=== PATIENT | male | born 1940 | race Caucasian/White ===

== ENCOUNTER 2017-08-08 22:39 | Inpatient (IN) | payer OTHER, MEDICARE ==
[2017-08-09] MEDS ORDERED: cefTRIAXone 1 GM Vial IVPUSH ONE (00:33)
--- NOTE | 2017-08-09 01:31 | EDM.PDOC ---
ED HPI GENERAL MEDICAL PROBLEM - General Chief Complaint: Fever Stated Complaint: fall, fever, cough Time Seen by Provider: 08/08/17 23:11 Source of Information: Reports: Patient, EMS, EMS Notes Reviewed, Family History Limitations: Reports: No Limitations - History of Present Illness INITIAL COMMENTS - FREE TEXT/NARRATIVE: Patient brought in via ambulance after passing out at the side of his bed. He did fall on his head and complained of head and neck pain. Has chronic back pain. Was reportedly non responsive on first responders report. He is responsive here but difficult to understand. Medical history is recorded below. No complaints of chest pain, nausea, vomiting, blood in urine or stool. Was seen at the clinic today for fever and shortness of breath/cough. Started on augmentin. Chronic kidney disease, tardive dyskinesia, htn, frequent UTI's, schizoaffective disorder. Is febrile with some diaphoresis. Onset: Gradual Duration: Getting Worse Location: Reports: Chest Associated Symptoms: Reports: Shortness of Breath - Related Data Allergies Allergy/AdvReac Type Severity Reaction Status Date / Time No Known Allergies Allergy Verified 08/08/17 23:47 Home Meds: Home Meds Allopurinol [Zyloprim] 300 mg PO DAILY 04/10/17 [History] Aspirin [Ecotrin] 325 mg PO DAILY 04/10/17 [History] [place] Carbonate 300 mg PO BEDTIME 04/10/17 [History] Metoprolol Succinate [Toprol XL] 25 mg PO DAILY 04/10/17 [History] Tamsulosin HCl [Flomax] 0.4 mg PO DAILY 04/10/17 [History] Trifluoperazine 2 mg PO DAILY@0800 04/10/17 [History] atorvaSTATin [Lipitor] 10 mg PO BEDTIME 04/10/17 [History] buPROPion [Wellbutrin XL] 150 mg PO DAILY 04/10/17 [History] metFORMIN HCl [Metformin HCl] 1,000 mg PO BID 04/10/17 [History] Trifluoperazine 4 mg PO BEDTIME 04/11/17 [History] Levothyroxine 175 mcg PO DAILY 08/09/17 [History] Past Medical History HEENT History: Reports: Hard of Hearing, Other (See Below) Other HEENT History: severe dental caries Cardiovascular History: Reports: CAD, High Cholesterol, Hypertension Genitourinary History: Reports: Urinary Incontinence Musculoskeletal History: Reports: Other (See Below) Other Musculoskeletal History: DJD of lumbar spine Neurological History: Reports: Neuropathy, Diabetic, Other (See Below) Other Neuro History: intention tremor, mild aphasia, schizoaffective disorder, bipolar type Psychiatric History: Reports: Anxiety, Depression, Other (See Below) Other Psychiatric History: schizoaffective disorder, bipolar type Endocrine/Metabolic History: Reports: Diabetes, Type II, Hypothyroidism Dermatologic History: Reports: Other (See Below) Other Dermatologic History: 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 - Infectious Disease History Infectious Disease History: Reports: Herpes - Past Surgical History Cardiovascular Surgical History: Reports: None GI Surgical History: Reports: Appendectomy Male Surgical History: Reports: Other (See Below) Other Male Surgeries/Procedures: prostate hypertrophy Social & Family History - Family History Family Medical History: Noncontributory - Tobacco Use Smoking Status *Q: Former Smoker Years of Tobacco use: 40 Packs/Tins Daily: 2 Used Tobacco, but Quit: No Month Tobacco Last Used: unknown - Caffeine Use Caffeine Use: Reports: None - Recreational Drug Use Recreational Drug Use: No ED ROS GENERAL - Review of Systems Review Of Systems: See Below Constitutional: Reports: Fever HEENT: Reports: No Symptoms Respiratory: Reports: Shortness of Breath Cardiovascular: Reports: No Symptoms Endocrine: Reports: No Symptoms GI/Abdominal: Reports: No Symptoms : Reports: No Symptoms Musculoskeletal: Reports: Neck Pain, Back Pain Skin: Reports: Wound (skin tear to right lower arm from fall) Neurological: Reports: Weakness Psychiatric: Reports: Anxiety, Depression Hematologic/Lymphatic: Reports: No Symptoms Immunologic: Reports: No Symptoms ED EXAM, SEPSIS - Physical Exam Exam: See Below Exam Limited By: Altered Mental Status General Appearance: Alert, WD/WN, Mild Distress Eye Exam: Bilateral Eye: EOMI, PERRL Ears: Normal TMs Throat/Mouth: Normal Inspection, Normal Lips, Normal Teeth, Normal Gums, Normal Oropharynx, Normal Voice, No Airway Compromise Head: Atraumatic, Normocephalic Neck: Normal Inspection, Supple, Non-Tender, Full Range of Motion Respiratory/Chest: No Respiratory Distress, Decreased Breath Sounds, Rhonchi Cardiovascular: Normal Peripheral Pulses, Regular Rate, Rhythm, No Edema, No Gallop, No JVD, No Murmur, No Rub GI/Abdominal Exam: Normal Bowel Sounds, Soft, Non-Tender, No Organomegaly, No Distention, No Abnormal Bruit, No Mass, Pelvis Stable Extremities: Normal Capillary Refill, Pedal Edema Neurological: Alert, Confused, Disoriented, Slow to Respond Psychiatric: Flat Affect Skin: Wound/Incision (right distal forearm skin tear. covered with dressing) Course - Vital Signs Last Recorded V/S: Last Vital Signs Temp 38.3 C H 08/08/17 22:40 Pulse 116 H 08/08/17 22:40 Resp 32 H 08/08/17 22:40 BP 138/93 H 08/08/17 22:40 Pulse Ox 93 L 08/08/17 22:40 - Orders/Labs/Meds Orders: Active Orders 24 hr Category Date Time Status Patient Status [ADT] Routine ADT 08/09/17 00:50 Ordered EKG Documentation Completion [RC] ROUTINE Care 08/08/17 23:12 Ordered Humphreys Catheter Insertion [Insert Urinary Catheter] [OM. Care 08/08/17 23:30 Ordered PC] Q24H Urinary Catheter Assessment [RC] ASDIRECTED Care 08/08/17 23:21 Active Cervical Spine wo Cont [CT] Stat Exams 08/08/17 23:12 Taken Chest wo Cont [CT] Stat Exams 08/08/17 23:12 Taken Head wo Cont [CT] Stat Exams 08/08/17 23:12 Taken CULTURE BLOOD [BC] Stat Lab 08/08/17 23:34 Received CULTURE BLOOD [BC] Stat Lab 08/08/17 23:40 Received CULTURE URINE [RM] Stat Lab 08/09/17 00:59 Uncollected PSA-EIA [REF] Stat Lab 08/08/17 23:34 Received Lactated Ringers @ 125 MLS/HR(1,000ml) Med 08/09/17 01:00 Ordered Lactated Ringers [Ringers, Lactated] 1,000 ml IV ASDIRECTED Blood Culture x2 Reflex Set [OM.PC] Stat Oth 08/08/17 23:34 Ordered Medication Orders Lactated Ringer's (Ringers, Lactated) 1,000 mls @ 125 mls/hr IV ASDIRECTED SHARRON Labs: Laboratory Tests 08/08/17 08/08/17 08/08/17 Range/Units 23:34 23:34 23:34 WBC 12.7 H (4.0-10.0) x10^3/uL RBC 5.71 (4.5-6.0) x10^6/uL Hgb 16.8 D (14.0-18.0) g/dL Hct 51.0 (40.0-52.0) % MCV 89.3 (78.0-93.0) fL MCH 29.4 (26.0-32.0) pg MCHC 32.9 (32.0-36.0) g/dL RDW Coeff of Yovany 15.7 H (10.0-15.0) % Plt Count 105 L (130-400) x10^3/uL Neut % (Auto) 81.7 H (50.0-80.0) % Lymph % (Auto) 8.9 L (25.0-50.0) % [place] % (Auto) 9.2 (2.0-11.0) % Eos % (Auto) 0.0 (0.0-4.0) % Baso % (Auto) 0.2 (0.2-1.2) % POC ABG pH (7.35-7.45) POC ABG pCO2 (35-45) mmHG POC ABG pO2 (80-105) mmHG POC ABG HCO3 (22-26) mmol/L POC ABG Total CO2 (23-27) mmol/L POC ABG O2 Sat (95-98) % POC ABG Base Excess (-2-3) mmol/L POC FiO2 Sodium 142 (136-145) mmol/L Potassium 4.7 (3.5-5.1) mmol/L Chloride 105 (98-107) mmol/L Carbon Dioxide 22 (21-32) mmol/L BUN 32 H (7-18) mg/dL Creatinine 1.9 H (0.70-1.30) mg/dL Est Cr Clr Drug Dosing 41.24 mL/min Estimated GFR (MDRD) 35 Glucose 202 H (74-106) mg/dL Lactic Acid 3.4 H* (0.4-2.0) mmol/L Calcium 8.3 L (8.5-10.1) mg/dL Corrected Calcium 8.46 L (8.5-10.1) mg/dL Total Bilirubin 1.0 (0.2-1.0) mg/dL AST 42 H (15-37) U/L ALT 40 (16-63) U/L Alkaline Phosphatase 130 H (46-116) U/L Troponin I 0.073 H* (<=0.056) ng/mL C-Reactive Protein 4.0 H (<=0.9) mg/dL NT-Pro-B Natriuret Pep (<=450) pg/mL Total Protein 7.2 (6.4-8.2) g/dL Albumin 3.8 (3.4-5.0) g/dL Globulin 3.4 g/dL Albumin/Globulin Ratio 1.12 TSH, Ultra Sensitive 0.838 (0.358-3.74) uIU/mL Urine Color (YELLOW) Urine Appearance (CLEAR) Urine pH (5.0-8.0) Ur Specific [place] Urine Protein (NEGATIVE) mg/dL Urine Glucose (UA) (NEGATIVE) mg/dL Urine Ketones (NEGATIVE) mg/dL Urine Occult Blood (NEGATIVE) Urine Nitrite (NEGATIVE) Urine Bilirubin (NEGATIVE) Urine Urobilinogen (0.2) EU/dL Ur Leukocyte Esterase (NEGATIVE) Urine RBC (NOT SEEN) /HPF Urine WBC (NOT SEEN) /HPF Ur Squamous Epith Cells (NEGATIVE) /HPF Amorphous Sediment Urine Bacteria (NEGATIVE) /HPF Hyaline Casts (NEGATIVE) /HPF Granular Casts (NEGATIVE) /HPF Urine Mucus (NEGATIVE) /LPF 08/08/17 08/08/17 08/09/17 Range/Units 23:34 23:51 00:40 WBC (4.0-10.0) x10^3/uL RBC (4.5-6.0) x10^6/uL Hgb (14.0-18.0) g/dL Hct (40.0-52.0) % MCV (78.0-93.0) fL MCH (26.0-32.0) pg MCHC (32.0-36.0) g/dL RDW Coeff of Yovany (10.0-15.0) % Plt Count (130-400) x10^3/uL Neut % (Auto) (50.0-80.0) % Lymph % (Auto) (25.0-50.0) % [place] % (Auto) (2.0-11.0) % Eos % (Auto) (0.0-4.0) % Baso % (Auto) (0.2-1.2) % POC ABG pH 7.409 (7.35-7.45) POC ABG pCO2 31 L (35-45) mmHG POC ABG pO2 78 L (80-105) mmHG POC ABG HCO3 19 L (22-26) mmol/L POC ABG Total CO2 20 L (23-27) mmol/L POC ABG O2 Sat 96 (95-98) % POC ABG Base Excess -5 L (-2-3) mmol/L POC FiO2 0.28 Sodium (136-145) mmol/L Potassium (3.5-5.1) mmol/L Chloride (98-107) mmol/L Carbon Dioxide (21-32) mmol/L BUN (7-18) mg/dL Creatinine (0.70-1.30) mg/dL Est Cr Clr Drug Dosing mL/min Estimated GFR (MDRD) Glucose (74-106) mg/dL Lactic Acid (0.4-2.0) mmol/L Calcium (8.5-10.1) mg/dL Corrected Calcium (8.5-10.1) mg/dL Total Bilirubin (0.2-1.0) mg/dL AST (15-37) U/L ALT (16-63) U/L Alkaline Phosphatase (46-116) U/L Troponin I (<=0.056) ng/mL C-Reactive Protein (<=0.9) mg/dL NT-Pro-B Natriuret Pep 337 (<=450) pg/mL Total Protein (6.4-8.2) g/dL Albumin (3.4-5.0) g/dL Globulin g/dL Albumin/Globulin Ratio TSH, Ultra Sensitive (0.358-3.74) uIU/mL Urine Color Yellow (YELLOW) Urine Appearance Slightly cloudy H (CLEAR) Urine pH 5.0 (5.0-8.0) Ur Specific [place] 1.020 Urine Protein 30 H (NEGATIVE) mg/dL Urine Glucose (UA) Negative (NEGATIVE) mg/dL Urine Ketones 15 H (NEGATIVE) mg/dL Urine Occult Blood Moderate H (NEGATIVE) Urine Nitrite Negative (NEGATIVE) Urine Bilirubin Small H (NEGATIVE) Urine Urobilinogen 0.2 (0.2) EU/dL Ur Leukocyte Esterase Negative (NEGATIVE) Urine RBC 0-5 (NOT SEEN) /HPF Urine WBC 0-5 (NOT SEEN) /HPF Ur Squamous Epith Cells Not seen (NEGATIVE) /HPF Amorphous Sediment Moderate Urine Bacteria Few H (NEGATIVE) /HPF Hyaline Casts Few H (NEGATIVE) /HPF Granular Casts Moderate H (NEGATIVE) /HPF Urine Mucus Few H (NEGATIVE) /LPF Meds: Medications Generic Name Dose Route Start Last Admin Trade Name Freq PRN Reason Stop Dose Admin Lactated Ringer's 1,000 mls @ 125 mls/hr 08/09/17 01:00 Ringers, Lactated IV ASDIRECTED SHARRON Discontinued Medications Generic Name Dose Route Start Last Admin Trade Name Freq PRN Reason Stop Dose Admin Ceftriaxone Sodium 1 gm 08/09/17 00:33 08/09/17 00:48 Rocephin IVPUSH 08/09/17 00:34 1 gm ONETIME ONE Administration Departure - Departure Time of Disposition: 01:33 Disposition: Refer to Observation Clinical Impression: CKD (chronic kidney disease) stage 3, GFR 30-59 ml/min, Dehydration Urinary tract infection Qualifiers: Urinary tract infection type: acute cystitis Hematuria presence: with hematuria Qualified Code(s): N30.01 - Acute cystitis with hematuria - Discharge Information Referrals: Tom Sow MD [Primary Care Provider] - - Problem List & Annotations (1) Urinary tract infection SNOMED Code(s): 44196287 Code(s): N39.0 - URINARY TRACT INFECTION, SITE NOT SPECIFIED Status: Acute Priority: Medium Current Visit: Yes Onset Date: ~04/10/17 Annotation/ Comment:: [place] mirabalis, 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 Qualifiers: Urinary tract infection type: acute cystitis Hematuria presence: with hematuria Qualified Code(s): N30.01 - Acute cystitis with hematuria (2) Dehydration SNOMED Code(s): 81368528 Code(s): E86.0 - DEHYDRATION Status: Acute Priority: Medium Current Visit: Yes (3) CKD (chronic kidney disease) stage 3, GFR 30-59 ml/min SNOMED Code(s): 367766100 Code(s): N18.3 - CHRONIC KIDNEY DISEASE, STAGE 3 (MODERATE) Status: Chronic Current Visit: Yes - Problem List Review Problem List Initiated/Reviewed/Updated: Yes - My Orders Last 24 Hours: My Active Orders 08/08/17 23:12 EKG Documentation Completion [RC] ROUTINE Cervical Spine wo Cont [CT] Stat Chest wo Cont [CT] Stat Head wo Cont [CT] Stat 08/08/17 23:21 Urinary Catheter Assessment [RC] ASDIRECTED 08/08/17 23:30 Humphreys Catheter Insertion [Insert Urinary Catheter] [OM.PC] Q24H 08/08/17 23:34 CULTURE BLOOD [BC] Stat PSA-EIA [REF] Stat Blood Culture x2 Reflex Set [OM.PC] Stat 08/08/17 23:40 CULTURE BLOOD [BC] Stat 08/09/17 00:50 Patient Status [ADT] Routine 08/09/17 00:59 CULTURE URINE [RM] Stat 08/09/17 01:00 Lactated Ringers @ 125 MLS/HR(1,000ml) Lactated Ringers [Ringers, Lactated] 1, 000 ml IV ASDIRECTED - Assessment/Plan Last 24 Hours: My Active Orders 08/08/17 23:12 EKG Documentation Completion [RC] ROUTINE Cervical Spine wo Cont [CT] Stat Chest wo Cont [CT] Stat Head wo Cont [CT] Stat 08/08/17 23:21 Urinary Catheter Assessment [RC] ASDIRECTED 08/08/17 23:30 Humphreys Catheter Insertion [Insert Urinary Catheter] [OM.PC] Q24H 08/08/17 23:34 CULTURE BLOOD [BC] Stat PSA-EIA [REF] Stat Blood Culture x2 Reflex Set [OM.PC] Stat 08/08/17 23:40 CULTURE BLOOD [BC] Stat 08/09/17 00:50 Patient Status [ADT] Routine 08/09/17 00:59 CULTURE URINE [RM] Stat 08/09/17 01:00 Lactated Ringers @ 125 MLS/HR(1,000ml) Lactated Ringers [Ringers, Lactated] 1, 000 ml IV ASDIRECTED Plan: 1. Admit to observation 2. UTI - start rocephin 1 gram daily 3. dehydration - rehydrate 4. elevated troponin - trend with redraw in 6 hours 5. Possible sepsis - repeat lactic acid in 6 hours 6. Chronic kidney disease - hydration, monitor creatinine, BUN, GFR
[2017-08-09] MEDS: Lactated Ringers 1,000 ML IV SCH ×2 (02:17→09:55)
[2017-08-09] MEDS: Enoxaparin 40 MG/0.4 ML Syringe SUBCUT SCH (07:37)
--- NOTE | 2017-08-09 12:00 | PCM.HP ---
H&P History of Present Illness - General Date of Service: 08/08/17 Admit Problem/Dx: Admission Diagnosis/Problem Admission Diagnosis/Problem influenza, pneumonia Source of Information: Patient, EMS Notes Reviewed - History of Present Illness Initial Comments - Free Text/Narative: Patient was brought in via ambulance last night after an episode of collapsing at his bedside. Initial EMS report states he was unresponsive. Upon their arrival to the scene he was on the floor, people that witnessed the event said that he had fallen headfirst and was complaining of head and neck pain. Subsequently he was put into a cervical collar and placed in C-spine precautions. He is alert when he arrives here but is unable to vocalize any prior medical history or any current complaints that he has right now. Additional reports indicate that he had some shortness of breath and cough for the last few days was seen at the clinic and started on Augmentin but this did not take care of the problem. He did get his influenza vaccination this year. Due to reports of him following off of his bed onto his head and neck and that he is in C-spine precautions I am going to go ahead and do a head and neck CT as well as a chest CT. Or history on him does include hypothyroidism, hypertension, hyperlipidemia, gout, schizoaffective disorder, tardive dyskinesia , BPH. His arrival has him very unkempt, with very strong urine odor of both human and feline alike. Shoes are covered in cat Feces. Onset of Symptoms: Reports: Gradual Duration of Symptoms: Reports: Getting Worse Location: Reports: Head, Neck, Chest Associated Symptoms: Reports: Cough, cough w sputum, Diaphoresis, Fever/Chills - Related Data Allergies/Adverse Reactions: Allergies Allergy/AdvReac Type Severity Reaction Status Date / Time No Known Allergies Allergy Verified 08/09/17 09:32 Home Medications: Home Meds Allopurinol [Zyloprim] 300 mg PO DAILY 04/10/17 [History] Aspirin [Ecotrin] 325 mg PO DAILY 04/10/17 [History] [place] Carbonate 300 mg PO BEDTIME 04/10/17 [History] Metoprolol Succinate [Toprol XL] 25 mg PO DAILY 04/10/17 [History] Tamsulosin HCl [Flomax] 0.4 mg PO DAILY 04/10/17 [History] Trifluoperazine 2 mg PO DAILY@0800 04/10/17 [History] atorvaSTATin [Lipitor] 10 mg PO BEDTIME 04/10/17 [History] buPROPion [Wellbutrin XL] 150 mg PO DAILY 04/10/17 [History] metFORMIN HCl [Metformin HCl] 1,000 mg PO BID 04/10/17 [History] Trifluoperazine 4 mg PO BEDTIME 04/11/17 [History] Levothyroxine 175 mcg PO DAILY 08/09/17 [History] Past Medical History HEENT History: Reports: Hard of Hearing, Other (See Below) Other HEENT History: severe dental caries Cardiovascular History: Reports: CAD, High Cholesterol, Hypertension Genitourinary History: Reports: BPH, Urinary Incontinence Musculoskeletal History: Reports: Gout, Other (See Below) Other Musculoskeletal History: DJD of lumbar spine Neurological History: Reports: Neuropathy, Diabetic, Other (See Below) Other Neuro History: intention tremor, mild aphasia, schizoaffective disorder, bipolar type Psychiatric History: Reports: Anxiety, Depression, Other (See Below) Other Psychiatric History: schizoaffective disorder, bipolar type Endocrine/Metabolic History: Reports: Diabetes, Type II, Hypothyroidism Dermatologic History: Reports: Other (See Below) Other Dermatologic History: 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 - Infectious Disease History Infectious Disease History: Reports: Herpes - Past Surgical History Cardiovascular Surgical History: Reports: None GI Surgical History: Reports: Appendectomy Male Surgical History: Reports: Other (See Below) Other Male Surgeries/Procedures: prostate hypertrophy Social & Family History - Family History Family Medical History: Noncontributory - Tobacco Use Smoking Status *Q: Former Smoker Years of Tobacco use: 40 Packs/Tins Daily: 2 Used Tobacco, but Quit: No Month Tobacco Last Used: unknown - Caffeine Use Caffeine Use: Reports: None - Recreational Drug Use Recreational Drug Use: No H&P Review of Systems - Review of Systems: Review Of Systems: Unable To Obtain Exam - Exam Exam: See Below - Vital Signs Vital Signs: Last Vital Signs Temp 37.1 C 08/09/17 10:00 Pulse 84 08/09/17 10:00 Resp 18 08/09/17 10:00 BP 125/53 L 08/09/17 10:00 Pulse Ox 92 L 08/09/17 10:00 Weight: 109.883 kg - Exam Quality Assessment: Supplemental Oxygen General: Mild Distress, Lethargic, Obtunded HEENT: Hearing Intact, Nares Patent, Pupils Equal, Pupils Reactive, TMs Clear Neck: Supple Lungs: Decreased Breath Sounds, Rhonchi, Wheezing Cardiovascular: Regular Rate, Regular Rhythm GI/Abdominal Exam: Normal Bowel Sounds, Soft, Non-Tender, No Organomegaly, No Distention, No Abnormal Bruit, No Mass, Pelvis Stable Back Exam: Normal Inspection, Full Range of Motion, NT Extremities: Pedal Edema, Slow Capillary Refill, Limited Range of Motion Peripheral Pulses: 2+: Posterior Tibial (L), Posterior Tibial (R), Dorsalis Pedis (L), Dorsalis Pedis (R) Skin: Cool, Moist Neurological: Strength Equal Bilateral, Sensation Intact Neuro Extensive - Mental Status: Disorientation to Place, Disorientation to Time , Inattentive, Opens Eyes to Commands Neuro Extensive - Motor, Sensory, Reflexes: Tremor Psychiatric: Alert, Depressed, Withdrawal Symptoms - Patient Data Lab Results Last 24 hrs: Laboratory Results - last 24 hr 08/09/17 08/09/17 08/09/17 Range/Units 05:24 06:50 06:50 WBC 12.2 H (4.0-10.0) x10^3/uL RBC 5.26 (4.5-6.0) x10^6/uL Hgb 15.4 (14.0-18.0) g/dL Hct 47.1 (40.0-52.0) % MCV 89.5 (78.0-93.0) fL MCH 29.3 (26.0-32.0) pg MCHC 32.7 (32.0-36.0) g/dL RDW Coeff of Yovany 15.5 H (10.0-15.0) % Plt Count 119 L (130-400) x10^3/uL Neut % (Auto) 75.1 (50.0-80.0) % Lymph % (Auto) 14.4 L (25.0-50.0) % [place] % (Auto) 10.4 (2.0-11.0) % Eos % (Auto) 0.0 (0.0-4.0) % Baso % (Auto) 0.1 L (0.2-1.2) % POC Glucose 176 H (74-106) mg/dL Lactic Acid 1.5 (0.4-2.0) mmol/L Troponin I (<=0.056) ng/mL 08/09/17 08/09/17 Range/Units 06:50 11:38 WBC (4.0-10.0) x10^3/uL RBC (4.5-6.0) x10^6/uL Hgb (14.0-18.0) g/dL Hct (40.0-52.0) % MCV (78.0-93.0) fL MCH (26.0-32.0) pg MCHC (32.0-36.0) g/dL RDW Coeff of Yovany (10.0-15.0) % Plt Count (130-400) x10^3/uL Neut % (Auto) (50.0-80.0) % Lymph % (Auto) (25.0-50.0) % [place] % (Auto) (2.0-11.0) % Eos % (Auto) (0.0-4.0) % Baso % (Auto) (0.2-1.2) % POC Glucose 198 H (74-106) mg/dL Lactic Acid (0.4-2.0) mmol/L Troponin I 0.075 H* (<=0.056) ng/mL Result Diagrams: 08/09/17 06:50 08/08/17 23:34 Jann Results Last 24 hrs: Microbiology 08/09/17 02:30 Influenza Type A Antigen Screen - Final Nasopharyngeal Swab - Nare, Left NEGATIVE INFLUENZA A VIRUS AG Influenza Type B Antigen Screen - Final Positive Influenza B Ag *Q Meaningful Use (ADM) - VTE *Q VTE Criteria *Q: - Stroke *Q Stroke Criteria *Q: - AMI *Q AMI Criteria *Q: - Problem List (1) Urinary tract infection SNOMED Code(s): 25744688 ICD Code: N39.0 - URINARY TRACT INFECTION, SITE NOT SPECIFIED Status: Acute Priority: Medium Current Visit: No Onset Date: ~04/10/17 Problem Details: Anastasiaus alexilis, 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 Qualifiers: Urinary tract infection type: acute cystitis Hematuria presence: with hematuria Qualified Code(s): N30.01 - Acute cystitis with hematuria (2) Dehydration SNOMED Code(s): 16988356 ICD Code: E86.0 - DEHYDRATION Status: Acute Priority: Medium Current Visit: Yes (3) CKD (chronic kidney disease) stage 3, GFR 30-59 ml/min SNOMED Code(s): 403185482 ICD Code: N18.3 - CHRONIC KIDNEY DISEASE, STAGE 3 (MODERATE) Status: Chronic Current Visit: Yes (4) Influenza B SNOMED Code(s): 90342352 ICD Code: J10.1 - FLU DUE TO OTH IDENT INFLUENZA VIRUS W OTH RESP MANIFEST Status: Acute Current Visit: Yes (5) RML pneumonia SNOMED Code(s): 640515879 ICD Code: J18.1 - LOBAR PNEUMONIA, UNSPECIFIED ORGANISM Status: Acute Current Visit: Yes Qualifiers: Pneumonia type: due to unspecified organism Qualified Code(s): J18.1 - Lobar pneumonia, unspecified organism Problem List Initiated/Reviewed/Updated: Yes Orders Last 24hrs: Active Orders 24 hr Category Date Time Status Patient Status [ADT] Routine ADT 08/09/17 02:12 Active Ambulate [RC] 08, Care 08/09/17 02:13 Active Antiembolic Devices [RC] 08, Care 08/09/17 02:15 Active Blood Glucose Check, Bedside [RC] 07,11,17,20 Care 08/09/17 03:40 Active Intake and Output [RC] 06,18 Care 08/09/17 02:13 Active Oxygen Therapy [RC] 08,20 Care 08/09/17 02:12 Active Up With Assistance [RC] 08,20 Care 08/09/17 02:12 Active VTE/DVT Education [RC] .PRN Care 08/09/17 02:12 Active Vital Signs [RC] 06,10,14,18,22,02 Care 08/09/17 02:12 Active Consult to Case Management [CONS] Routine Cons 08/09/17 02:12 Active 2 Gram Sodium Diet [DIET] Diet 08/09/17 Breakfast Active Citizen Of [place] Diabetic Association Diet [DIET] Diet 08/09/17 Breakfast Active CULTURE URINE [RM] Stat Lab 08/09/17 00:40 Received Enoxaparin [Lovenox] Med 08/09/17 08:00 Active 40 mg SUBCUT DAILY Lactated Ringers [Ringers, Lactated] 1,000 ml Med 08/09/17 01:00 Active IV ASDIRECTED Sequential Compression Device [OM.PC] Per Unit Routine Oth 08/09/17 02:13 Ordered Resuscitation Status Routine Resus Stat 08/09/17 02:12 Ordered Medication Orders Enoxaparin Sodium (Lovenox) 40 mg SUBCUT DAILY [facility] Last Admin: 08/09/17 07:37 Dose: 40 mg Lactated Ringer's (Ringers, Lactated) 1,000 mls @ 125 mls/hr IV ASDIRECTED [facility] Last Admin: 08/09/17 09:55 Dose: 125 mls/hr Infusion: 08/09/17 09:55 Dose: 125 mls/hr Admin: 08/09/17 02:17 Dose: 125 mls/hr Assessment/Plan Comment:: 1. Influenza B - start tamiflu 75 mg BID 2. Pneumonia - right middle lobe - start azithromycin in addition to rocephin 3. dehydration - carefully replenish fluids 4. elevated troponin - trend 5. questionable UTI - culture urine for organisms
[2017-08-09] MEDS ORDERED: Oseltamivir 75 MG Cap PO SCH (12:15)
[2017-08-09] MEDS ORDERED: Azithromycin 500 MG in Sodium Chloride 0.9% 250 ML IV SCH (12:15)
[2017-08-09] MEDS: Oseltamivir 30 MG Cap PO SCH ×2 (13:15→20:50)
--- NOTE | 2017-08-09 13:21 | PCM.PN ---
- General Info Date of Service: 08/09/17 Subjective Update: Patient is a 77 yo male with influenza and pneumonia admitted observation overnight following a syncopal event. As he now is felt to be more appropriate for an acute status, I was contacted by the ER provider to take over his care. The patient cannot say that he feels any better today than yesterday. He is still coughing and still has some shortness of breath. He denies any chest pain. Was febrile overnight as well. Appetite is good and he is wondering about eating lunch. No nausea or vomiting. He denies any pain related to his fall and denies any other symptoms. - Review of Systems General: Reports: Fever, Weakness HEENT: Reports: No Symptoms Pulmonary: Reports: Shortness of Breath, Cough Cardiovascular: Reports: No Symptoms Gastrointestinal: Reports: No Symptoms Genitourinary: Reports: No Symptoms Musculoskeletal: Reports: No Symptoms Skin: Reports: No Symptoms Neurological: Reports: No Symptoms - Patient Data Vitals - Most Recent: Last Vital Signs Temp 37.1 C 08/09/17 10:00 Pulse 84 08/09/17 10:00 Resp 18 08/09/17 10:00 BP 125/53 L 08/09/17 10:00 Pulse Ox 92 L 08/09/17 10:00 Weight - Most Recent: 109.883 kg I&O - Last 24 Hours: Intake & Output 08/08/17 08/09/17 08/09/17 22:59 06:59 14:59 Intake Total 392 240 Output Total 550 Balance -158 240 Lab Results Last 24 Hours: Laboratory Results - last 24 hr 08/09/17 08/09/17 08/09/17 Range/Units 05:24 06:50 06:50 WBC 12.2 H (4.0-10.0) x10^3/uL RBC 5.26 (4.5-6.0) x10^6/uL Hgb 15.4 (14.0-18.0) g/dL Hct 47.1 (40.0-52.0) % MCV 89.5 (78.0-93.0) fL MCH 29.3 (26.0-32.0) pg MCHC 32.7 (32.0-36.0) g/dL RDW Coeff of Yovany 15.5 H (10.0-15.0) % Plt Count 119 L (130-400) x10^3/uL Neut % (Auto) 75.1 (50.0-80.0) % Lymph % (Auto) 14.4 L (25.0-50.0) % [place] % (Auto) 10.4 (2.0-11.0) % Eos % (Auto) 0.0 (0.0-4.0) % Baso % (Auto) 0.1 L (0.2-1.2) % POC Glucose 176 H (74-106) mg/dL Lactic Acid 1.5 (0.4-2.0) mmol/L Troponin I (<=0.056) ng/mL 08/09/17 08/09/17 Range/Units 06:50 11:38 WBC (4.0-10.0) x10^3/uL RBC (4.5-6.0) x10^6/uL Hgb (14.0-18.0) g/dL Hct (40.0-52.0) % MCV (78.0-93.0) fL MCH (26.0-32.0) pg MCHC (32.0-36.0) g/dL RDW Coeff of Yovany (10.0-15.0) % Plt Count (130-400) x10^3/uL Neut % (Auto) (50.0-80.0) % Lymph % (Auto) (25.0-50.0) % [place] % (Auto) (2.0-11.0) % Eos % (Auto) (0.0-4.0) % Baso % (Auto) (0.2-1.2) % POC Glucose 198 H (74-106) mg/dL Lactic Acid (0.4-2.0) mmol/L Troponin I 0.075 H* (<=0.056) ng/mL Jann Results Last 24 Hours: Microbiology 08/09/17 02:30 Influenza Type A Antigen Screen - Final Nasopharyngeal Swab - Nare, Left NEGATIVE INFLUENZA A VIRUS AG Influenza Type B Antigen Screen - Final Positive Influenza B Ag Med Orders - Current: Current Medications Enoxaparin Sodium (Lovenox) 40 mg SUBCUT DAILY [facility] Last Admin: 08/09/17 07:37 Dose: 40 mg Lactated Ringer's (Ringers, Lactated) 1,000 mls @ 125 mls/hr IV ASDIRECTED [facility] Last Admin: 08/09/17 09:55 Dose: 125 mls/hr Azithromycin 500 mg/ Sodium (Chloride) 250 mls @ 250 mls/hr IV DAILY [facility] Last Admin: 08/09/17 13:14 Dose: 250 mls/hr Oseltamivir Phosphate (Tamiflu) 30 mg PO BID [facility] Last Admin: 08/09/17 13:15 Dose: 30 mg Discontinued Medications Ceftriaxone Sodium (Rocephin) 1 gm IVPUSH ONETIME ONE Stop: 08/09/17 00:34 Last Admin: 08/09/17 00:48 Dose: 1 gm Oseltamivir Phosphate (Tamiflu) 75 mg PO BID [facility] Last Admin: 08/09/17 13:05 Dose: Not Given - Exam General: Alert, Cooperative, No Acute Distress HEENT: Mucous Membr. Moist/[place] Neck: Supple, Trachea Midline, No Thyromegaly. No: Lymphadenopathy Lungs: Clear to Auscultation, Normal Respiratory Effort Cardiovascular: Regular Rate, Regular Rhythm, No Murmurs GI/Abdominal Exam: Normal Bowel Sounds, Soft, Non-Tender, No Organomegaly, No Distention, No Mass Extremities: Normal Inspection, Non-Tender, No Pedal Edema Skin: Warm, Dry, Intact - Problem List & Annotations (1) Influenza, pneumonia SNOMED Code(s): 33055119989188 Code(s): J11.00 - FLU DUE TO UNIDENTIFIED FLU VIRUS W UNSP TYPE OF PNEUMONIA Status: Acute Current Visit: Yes Annotation/Comment:: - Symptoms for 2 weeks would suggest he has an influenza pneumonia rather than an uncomplicated influenza illness. - Therefore, tamiflu is indicated despite the duration of illness. - Dosing adjusted for renal function. - The appearance of the chest imaging and the lung exam would suggest that this is not a bacterial pneumonia. It would also not be consistent with a secondary bacterial pneumonia related to the influenza. However, reasonable to continue antibiotic therapy for now and ensure blood cultures are negative given he met SIRS criteria. - Oxygen as needed to keep saturations >88%. Will wean as able. (2) SIRS (systemic inflammatory response syndrome) SNOMED Code(s): 718018905 Code(s): R65.10 - SIRS OF NON-INFECTIOUS ORIGIN W/O ACUTE ORGAN DYSFUNCTION Status: Acute Current Visit: Yes Annotation/Comment:: - Meets SIRS criteria with leukocytosis and tachycardia. - Lactic acid normalized with IV fluids. Will complete current bag of LR and then d/c IV fluids. - No evidence of alternate infectious source in the absence of GI or skin symptoms and with a negative u/a. - As above, suspect his pneumonia is more viral in nature but will continue antibiotics at least until blood cultures are negative. - Blood cultures are pending. - Continue ceftriaxone and azithromycin. (3) Dehydration SNOMED Code(s): 20352594 Code(s): E86.0 - DEHYDRATION Status: Acute Priority: Medium Current Visit: Yes Annotation/Comment:: - See above. Dehydration improved based on labs and clinical exam. - Will complete current IV fluid bag and then see how he does with PO intake instead. (4) Acute kidney injury (nontraumatic) SNOMED Code(s): 07561795 Code(s): N17.9 - ACUTE KIDNEY FAILURE, UNSPECIFIED Status: Acute Priority : Medium Current Visit: No Onset Date: ~04/10/17 Annotation/Comment:: - Acute on chronic kidney injury. - Baseline creatinine likely in the 1.4 range. 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 - Received IV fluids since admission. Will d/c this after current bag. - Recheck creatinine tomorrow and will reassess need for further IV fluids at that time. (5) CKD (chronic kidney disease) stage 3, GFR 30-59 ml/min SNOMED Code(s): 143801513 Code(s): N18.3 - CHRONIC KIDNEY DISEASE, STAGE 3 (MODERATE) Status: Chronic Current Visit: Yes Annotation/Comment:: - See above. (6) Coronary artery disease SNOMED Code(s): 42696941 Code(s): I25.10 - ATHSCL HEART DISEASE OF [place] CORONARY ARTERY W/O ANG PCTRS Status: Chronic Current Visit: No Qualifiers: Coronary Disease-Associated Artery/Lesion type: [place] artery [place] vs. transplanted heart: [place] heart Associated angina: without angina Qualified Code(s): I25.10 - Atherosclerotic heart disease of [place] coronary artery without angina pectoris Annotation/Comment:: - Troponin elevated on admission but essentially stable on follow-up and not within range for concern for AMI. EKG with some changes but these are stable from EKG in 2014. - No symptoms to suggest any acute cardiac process at this time. - Continue home medications. - Will monitor for change in symptoms. (7) Diabetes mellitus SNOMED Code(s): 05504300 Code(s): E11.9 - TYPE 2 DIABETES MELLITUS WITHOUT COMPLICATIONS Status: Chronic Current Visit: No Qualifiers: Diabetes mellitus type: type 2 Diabetes mellitus complication status: with neurologic complications Diabetes mellitus complication detail: with polyneuropathy Diabetes mellitus intermediate school teacher insulin use: without intermediate school teacher use Qualified Code(s): E11.42 - Type 2 diabetes mellitus with diabetic polyneuropathy Annotation/Comment:: - QID glucoses. - Hold metformin. - Will add insulin if needed based on glucose readings. (8) Hyperlipidemia SNOMED Code(s): 10976808 Code(s): E78.5 - HYPERLIPIDEMIA, UNSPECIFIED Status: Chronic Current Visit: No Qualifiers: Hyperlipidemia type: unspecified Qualified Code(s): E78.5 - Hyperlipidemia , unspecified Annotation/Comment:: - Continue home medications. (9) Hyperuricemia SNOMED Code(s): 98992688 Code(s): E79.0 - HYPERURICEMIA W/O SIGNS OF INFLAM ARTHRIT AND TOPHACEOUS DIS Status: Chronic Current Visit: No Annotation/Comment:: - Continue home medications. (10) Hypothyroidism SNOMED Code(s): 70626665 Code(s): E03.9 - HYPOTHYROIDISM, UNSPECIFIED Status: Chronic Current Visit: No Qualifiers: Hypothyroidism type: acquired Qualified Code(s): E03.9 - Hypothyroidism, unspecified Annotation/Comment:: - Continue home medications. (11) Schizoaffective disorder SNOMED Code(s): 23066607 Code(s): F25.9 - SCHIZOAFFECTIVE DISORDER, UNSPECIFIED Status: Chronic Current Visit: No Qualifiers: Schizoaffective disorder type: bipolar Qualified Code(s): F25.0 - Schizoaffective disorder, bipolar type Annotation/Comment:: - Continue home medications. (12) Urinary incontinence due to benign prostatic hyperplasia SNOMED Code(s): 532843888659654 Code(s): N40.1 - BENIGN PROSTATIC HYPERPLASIA WITH LOWER URINARY TRACT SYMP; N39.498 - OTHER SPECIFIED URINARY INCONTINENCE Status: Chronic Current Visit : No Annotation/Comment:: - Continue home medications. - Problem List Review Problem List Initiated/Reviewed/Updated: Yes - My Orders Last 24 Hours: My Active Orders 08/09/17 13:00 Oseltamivir [Tamiflu] 30 mg PO BID 08/09/17 13:19 Admission Status [Patient Status] [ADT] Routine - Assessment Assessment:: 77 yo male admitted with influenza and pneumonia after presenting following a syncopal event last night. See above for further details. - Plan Plan:: See details under problems above. Tamiflu started with renal dose adjustment. Will be treated with azithromycin and rocephin until blood cultures return. Appearance on imaging and duration of symptoms is more consistent with an atypical pneumonia than a true lobar pneumonia. Decision to continue PO antibiotics upon discharge will depend on his clinical status. IV fluids today, then d/c and do PO. Home medications continued except metformin. Recheck labs in am. Patient will transition to acute status. Anticipate he will be here at least another 2 midnights but not likely more than 96 hours. Lovenox for VTE prophylaxis (CrCl is >30). Patient desires to be full code.
[2017-08-09] MEDS ORDERED: Azithromycin 250 MG Tab PO SCH (13:30)
--- NOTE | 2017-08-09 17:06 | PCM.SN ---
- Free Text/Narrative Note: Went to check on patient again after nursing notified me of the positive blood cultures. He is feeling better this afternoon. His vital signs remain stable. I would not expect this clinical course if this was an MRSA pneumonia. Therefore, will continue antibiotics as is for now except for increasing the ceftriaxone dose. If anything changes with his clinical status, will add vancomycin. Further information will be available tomorrow from the lab and we will make adjustments as indicated based on that information as well.
[2017-08-09] MEDS ORDERED: metFORMIN 500 MG Tab PO SCH (18:00)
[2017-08-09] MEDS: cefTRIAXone 2 GM Vial IVPUSH SCH (20:50)
[2017-08-09] MEDS: atorvaSTATin 10 MG Tab PO SCH (20:50)
--- NOTE | 2017-08-10 07:15 | PCM.PN ---
- General Info Date of Service: 08/10/17 Subjective Update: 77 yo male hospital day #2 with influenza and pneumonia. Slept well. Main complaint this am is generalized aches. Cough and shortness of breath are both improved. No fever or sweats overnight. Denies chest pain. Appetite is good. No vomiting or diarrhea. - Review of Systems General: Reports: No Symptoms HEENT: Reports: No Symptoms Pulmonary: Reports: Shortness of Breath, Cough Cardiovascular: Reports: No Symptoms Gastrointestinal: Reports: No Symptoms Genitourinary: Reports: No Symptoms Musculoskeletal: Reports: No Symptoms Skin: Reports: No Symptoms - Patient Data Vitals - Most Recent: Last Vital Signs Temp 36.9 C 08/10/17 05:32 Pulse 79 08/10/17 05:32 Resp 22 H 08/10/17 05:32 BP 120/61 08/10/17 05:32 Pulse Ox 97 08/10/17 05:32 Weight - Most Recent: 109.883 kg I&O - Last 24 Hours: Intake & Output 08/09/17 08/10/17 08/10/17 22:59 06:59 14:59 Intake Total 1264 200 Output Total 1300 650 Balance -36 -450 Lab Results Last 24 Hours: Laboratory Results - last 24 hr 08/09/17 08/09/17 08/10/17 Range/Units 16:59 21:12 05:30 POC Glucose 155 H 161 H 112 H (74-106) mg/dL Med Orders - Current: Current Medications Allopurinol (Zyloprim) 300 mg PO DAILY [facility] Aspirin (Ecotrin) 325 mg PO DAILY [facility] Atorvastatin Calcium (Lipitor) 10 mg PO BEDTIME [facility] Last Admin: 08/09/17 20:50 Dose: 10 mg Azithromycin (Zithromax) 500 mg PO DAILY [facility] Bupropion HCl (Wellbutrin Xl) 150 mg PO DAILY [facility] Ceftriaxone Sodium (Rocephin) 2 gm IVPUSH Q24H [facility] Last Admin: 08/09/17 20:50 Dose: 2 gm Enoxaparin Sodium (Lovenox) 40 mg SUBCUT DAILY [facility] Last Admin: 08/09/17 07:37 Dose: 40 mg Levothyroxine Sodium (Levothyroxine) 175 mcg PO ACBREAKFAST [facility] Last Admin: 08/10/17 06:43 Dose: 175 mcg [place] Carbonate [ [place] Carbonate] 300mg Own Med 300 mg PO BEDTIME [facility] Trifluoperazine 2mg ( Own Med ) 2 mg PO DAILY@0800 [facility] Trifluoperazine 4mg ( Own Med ) 4 mg PO BEDTIME [facility] Oseltamivir Phosphate (Tamiflu) 30 mg PO BID [facility] Last Admin: 08/09/17 20:50 Dose: 30 mg Sodium Chloride (Saline Flush) 10 ml IV ASDIRECTED PRN PRN Reason: Keep Vein Open Tamsulosin HCl (Flomax) 0.4 mg PO DAILY [facility] Discontinued Medications Azithromycin (Zithromax) 500 mg PO DAILY [facility] Ceftriaxone Sodium (Rocephin) 1 gm IVPUSH ONETIME ONE Stop: 08/09/17 00:34 Last Admin: 08/09/17 00:48 Dose: 1 gm Ceftriaxone Sodium (Rocephin) 1 gm IVPUSH DAILY [facility] Lactated Ringer's (Ringers, Lactated) 1,000 mls @ 125 mls/hr IV ASDIRECTED [facility] Last Admin: 08/09/17 09:55 Dose: 125 mls/hr Azithromycin 500 mg/ Sodium (Chloride) 250 mls @ 250 mls/hr IV DAILY [facility] Last Admin: 08/09/17 13:14 Dose: 250 mls/hr Metformin HCl (Glucophage) 1,000 mg PO BIDMEALS [facility] Metoprolol Succinate (Toprol Xl) 25 mg PO DAILY [facility] Oseltamivir Phosphate (Tamiflu) 75 mg PO BID [facility] Last Admin: 08/09/17 13:05 Dose: Not Given - Exam General: Alert, Oriented, Cooperative, No Acute Distress HEENT: Mucous Membr. Moist/[place] Neck: Supple, Trachea Midline, No Thyromegaly. No: Lymphadenopathy Lungs: Normal Respiratory Effort, Crackles (both lower lobes (R>L)) Cardiovascular: Regular Rate, Regular Rhythm, No Murmurs GI/Abdominal Exam: Normal Bowel Sounds, Soft, Non-Tender, No Organomegaly, No Distention, No Mass Extremities: Normal Inspection, Non-Tender, No Pedal Edema, Normal Capillary Refill Peripheral Pulses: 2+: Radial (L), Radial (R), Dorsalis Pedis (L), Dorsalis Pedis (R) Skin: Warm, Dry, Intact - Problem List & Annotations (1) Influenza, pneumonia SNOMED Code(s): 61038620759910 Code(s): J11.00 - FLU DUE TO UNIDENTIFIED FLU VIRUS W UNSP TYPE OF PNEUMONIA Status: Acute Current Visit: Yes Annotation/Comment:: - Symptoms for 2 weeks would suggest he has an influenza pneumonia rather than an uncomplicated influenza illness. - Therefore, tamiflu is indicated despite the duration of illness. - Dosing adjusted for renal function. Renal function improved today but borderline. Will leave dose for now and consider increasing if renal function remains improved tomorrow. - The appearance of the chest imaging and the lung exam would suggest that this is not a bacterial pneumonia. However, in light of the severity of illness and the positive blood cultures, antibiotics will be continued for now. Final decisions on duration will depend on further information on blood cultures that will be available later today. - He is currently off oxygen. Will restart as needed to keep saturations >88%. (2) SIRS (systemic inflammatory response syndrome) SNOMED Code(s): 698505992 Code(s): R65.10 - SIRS OF NON-INFECTIOUS ORIGIN W/O ACUTE ORGAN DYSFUNCTION Status: Acute Current Visit: Yes Annotation/Comment:: - Met SIRS criteria on admission with leukocytosis and tachycardia. - Both are now resolved and he is no longer meeting criteria. Lactic acid normalized with IV fluids. - No evidence of alternate infectious source in the absence of GI or skin symptoms and with a negative u/a. - SIRS as no bacterial source. Did have a positive blood culture in 1/4 bottles but we are awaiting further results to clarify whether this is a pathogen or a contaminant. This should be available later today. - As above, suspect his pneumonia is more viral in nature but will continue antibiotics at least until blood culture results more clear. - He is clinically improving; therefore, it would be highly unlikely that he has an MRSA infection and vancomycin is not likely indicated at this time. Continue ceftriaxone and azithromycin. (3) Positive blood culture SNOMED Code(s): 412261940 Code(s): R78.81 - BACTEREMIA Status: Acute Current Visit: Yes Annotation/Comment:: - See details of discussion above. - Only 1/4 bottles positive. Awaiting further results this afternoon. (4) Syncope SNOMED Code(s): 775335664 Code(s): R55 - SYNCOPE AND COLLAPSE Status: Acute Current Visit: Yes Qualifiers: Syncope type: vasovagal syncope Qualified Code(s): R55 - Syncope and collapse Annotation/Comment:: - Reason for ER visit but inadvertently not placed on problem list. Added today. - Likely secondary to acute illness as above. - Cardiac considered given the elevated troponin; however, this was stable over time and EKG was unchanged from previous essentially ruling this out as a possibility. - Patient has had no headache or focal neurologic deficits to make a primary neurologic cause unlikely. - No anemia or other lab abnormalities. - No further work-up at this time unless recurrence of symptoms. (5) Dehydration SNOMED Code(s): 34014559 Code(s): E86.0 - DEHYDRATION Status: Resolved Priority: Medium Current Visit: Yes Annotation/Comment:: - See above. Dehydration resolved based on labs and clinical exam. - Patient will continue with PO fluids and we will bolus with IV fluids PRN. (6) Acute kidney injury (nontraumatic) SNOMED Code(s): 38221413 Code(s): N17.9 - ACUTE KIDNEY FAILURE, UNSPECIFIED Status: Resolved Priority: Medium Current Visit: No Onset Date: ~04/10/17 Annotation/ Comment:: - Acute on chronic kidney injury now resolved. 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 - Continue oral hydration at this time. (7) CKD (chronic kidney disease) stage 3, GFR 30-59 ml/min SNOMED Code(s): 090026769 Code(s): N18.3 - CHRONIC KIDNEY DISEASE, STAGE 3 (MODERATE) Status: Chronic Current Visit: Yes Annotation/Comment:: - See above. (8) Coronary artery disease SNOMED Code(s): 73520894 Code(s): I25.10 - ATHSCL HEART DISEASE OF [place] CORONARY ARTERY W/O ANG PCTRS Status: Chronic Current Visit: No Qualifiers: Coronary Disease-Associated Artery/Lesion type: [place] artery [place] vs. transplanted heart: [place] heart Associated angina: without angina Qualified Code(s): I25.10 - Atherosclerotic heart disease of [place] coronary artery without angina pectoris Annotation/Comment:: - Troponin elevated on admission but essentially stable on follow-up and not within range for concern for AMI. EKG with some changes but these are stable from EKG in 2014. - No symptoms to suggest any acute cardiac process at this time. - Continue home medications. - Will monitor for change in symptoms. (9) Diabetes mellitus SNOMED Code(s): 16483176 Code(s): E11.9 - TYPE 2 DIABETES MELLITUS WITHOUT COMPLICATIONS Status: Chronic Current Visit: No Qualifiers: Diabetes mellitus type: type 2 Diabetes mellitus complication status: with neurologic complications Diabetes mellitus complication detail: with polyneuropathy Diabetes mellitus senior care insulin use: without terminal clerk use Qualified Code(s): E11.42 - Type 2 diabetes mellitus with diabetic polyneuropathy Annotation/Comment:: - QID glucoses. - Hold metformin. - Glucoses acceptable at this point. No indication for any insulin. (10) Hyperlipidemia SNOMED Code(s): 52928072 Code(s): E78.5 - HYPERLIPIDEMIA, UNSPECIFIED Status: Chronic Current Visit: No Qualifiers: Hyperlipidemia type: unspecified Qualified Code(s): E78.5 - Hyperlipidemia , unspecified Annotation/Comment:: - Continue home medications. (11) Hyperuricemia SNOMED Code(s): 93230713 Code(s): E79.0 - HYPERURICEMIA W/O SIGNS OF INFLAM ARTHRIT AND TOPHACEOUS DIS Status: Chronic Current Visit: No Annotation/Comment:: - Continue home medications. (12) Hypothyroidism SNOMED Code(s): 92639482 Code(s): E03.9 - HYPOTHYROIDISM, UNSPECIFIED Status: Chronic Current Visit: No Qualifiers: Hypothyroidism type: acquired Qualified Code(s): E03.9 - Hypothyroidism, unspecified Annotation/Comment:: - Continue home medications. (13) Schizoaffective disorder SNOMED Code(s): 86774584 Code(s): F25.9 - SCHIZOAFFECTIVE DISORDER, UNSPECIFIED Status: Chronic Current Visit: No Qualifiers: Schizoaffective disorder type: bipolar Qualified Code(s): F25.0 - Schizoaffective disorder, bipolar type Annotation/Comment:: - Continue home medications. - Pharmacy to assist with dosing as we do not have all of his medications available in house. (14) Urinary incontinence due to benign prostatic hyperplasia SNOMED Code(s): 534118394587936 Code(s): N40.1 - BENIGN PROSTATIC HYPERPLASIA WITH LOWER URINARY TRACT SYMP; N39.498 - OTHER SPECIFIED URINARY INCONTINENCE Status: Chronic Current Visit : No Annotation/Comment:: - Continue home medications. (15) Hypertension SNOMED Code(s): 11544757 Code(s): I10 - ESSENTIAL (PRIMARY) HYPERTENSION Status: Chronic Current Visit: Yes Qualifiers: Hypertension type: essential hypertension Qualified Code(s): I10 - Essential (primary) hypertension Annotation/Comment:: - Metoprolol held. He missed this yesterday am and has not had any rebound tachycardia. - Given severity of illness and the fact that his blood pressures have been borderline-low at times, will hold off on restarting this for now. - Problem List Review Problem List Initiated/Reviewed/Updated: Yes - My Orders Last 24 Hours: My Active Orders 08/09/17 20:00 [place] Carbonate [[place] Carbonate] 300 mg PO BEDTIME Trifluoperazine 4 mg PO BEDTIME atorvaSTATin [Lipitor] 10 mg PO BEDTIME cefTRIAXone [Rocephin] 2 gm IVPUSH Q24H 08/09/17 20:50 Sodium Chloride 0.9% [Saline Flush] 10 ml IV ASDIRECTED PRN 08/10/17 05:11 BASIC METABOLIC PANEL,BMP [CHEM] Routine C-REACTIVE PROTEIN [CHEM] Routine CBC WITH AUTO DIFF [HEME] Routine 08/10/17 07:00 Levothyroxine 175 mcg PO ACBREAKFAST 08/10/17 08:00 Allopurinol [Zyloprim] 300 mg PO DAILY Aspirin [Ecotrin] 325 mg PO DAILY Azithromycin [Zithromax] 500 mg PO DAILY Tamsulosin [Flomax] 0.4 mg PO DAILY Trifluoperazine 2 mg PO DAILY@0800 buPROPion [Wellbutrin XL] 150 mg PO DAILY - Assessment Assessment:: 77 yo male admitted with influenza and pneumonia after presenting following a syncopal event. See above for further details. Doing much better this am. - Plan Plan:: See details under problems above. Continue tamiflu, azithromycin, and ceftriaxone. / blood cultures positive, awaiting more information this pm. Appearance on imaging and duration of symptoms is more consistent with an atypical pneumonia than a true lobar pneumonia. Decision to continue PO antibiotics upon discharge will depend on his clinical status. Home medications continued except metformin and metoprolol. Recheck labs in am. Patient will remain acute status at this time - anticipate dismissal either tomorrow or the following day. Lovenox for VTE prophylaxis (CrCl is >30). Patient desires to be full code.
[2017-08-10] MEDS ORDERED: cefTRIAXone 1 GM Vial IVPUSH SCH (08:00)
[2017-08-10] MEDS ORDERED: Metoprolol Succinate 25 MG Tab.ER PO SCH (08:00)
[2017-08-10] MEDS: Aspirin 325 MG Tab.EC PO SCH (08:39)
[2017-08-10] MEDS: Azithromycin 250 MG Tab PO SCH (08:39)
[2017-08-10] MEDS: buPROPion 150 MG Tab.ER PO SCH (08:39)
[2017-08-10] MEDS: Tamsulosin 0.4 MG Cap.ER PO SCH (08:39)
[2017-08-10] MEDS: Allopurinol 300 MG Tab PO SCH (08:39)
[2017-08-10] MEDS: Oseltamivir 30 MG Cap PO SCH ×2 (08:39→20:17)
[2017-08-10] MEDS: Enoxaparin 40 MG/0.4 ML Syringe SUBCUT SCH (08:39)
[2017-08-10] MEDS: Sodium Chloride 0.9% 10 ML Syringe IV PRN ×2 (08:46→20:21)
[2017-08-10] MEDS: Lithium Carbonate 300 MG Tab.ER PO SCH ×2 (10:41→20:17)
[2017-08-10] MEDS: TRIFLUOPERAZINE 2 MG PO SCH (16:41)
[2017-08-10] MEDS: cefTRIAXone 2 GM Vial IVPUSH SCH (20:16)
[2017-08-10] MEDS: TRIFLUOPERAZINE PO SCH ×2 (20:17)
[2017-08-10] MEDS: atorvaSTATin 10 MG Tab PO SCH (20:17)
[2017-08-11] MEDS: Aspirin 325 MG Tab.EC PO SCH (07:52)
[2017-08-11] MEDS: Allopurinol 300 MG Tab PO SCH (07:52)
[2017-08-11] MEDS: buPROPion 150 MG Tab.ER PO SCH (07:52)
[2017-08-11] MEDS: Enoxaparin 40 MG/0.4 ML Syringe SUBCUT SCH (07:52)
[2017-08-11] MEDS: Tamsulosin 0.4 MG Cap.ER PO SCH (07:52)
[2017-08-11] MEDS: Oseltamivir 30 MG Cap PO SCH ×2 (07:52→19:40)
[2017-08-11] MEDS: Azithromycin 250 MG Tab PO SCH (07:52)
[2017-08-11] MEDS: TRIFLUOPERAZINE 2 MG PO SCH (07:53)
--- NOTE | 2017-08-11 11:17 | PN ---
Progress Note for ARIK BHATIA Date: 08/11/2017 Room #: VM.203 SUBJECTIVE: This is hospital day #3 on a 77-year-old admitted with influenza B after a fall at home. He continues to be short of breath when he is up and walking. His sats remained above and right at 90%. He is still coughing some, but has been afebrile. He does feel like he is feeling better. He has had a Humphreys in since admission. He has had trouble over the last year with leaking. He has been on Flomax. He has been off his metformin and metoprolol. Blood pressures are coming up slightly and his blood sugars have been excellent under 200. OBJECTIVE: VITAL SIGNS: His temperature is 98.4, pulse 90, blood pressure 152/73, respiratory rate 22, and O2 of 94% on room air. GENERAL: He is in no acute distress. HEART: Regular rate and rhythm. S1 and S2 without murmur. RESPIRATORY: Lung sounds are clear to auscultation bilaterally without crackles or wheezes. ABDOMEN: Mildly distended, soft, and nontender. EXTREMITIES: Warm and dry. No edema. MENTAL STATUS: He is alert. He is orientated x3. LABORATORY DATA: Laboratory work today does show the white count normal at 5.3, it was elevated at 12.7 on admission, hemoglobin is stable at 15.9, and platelets improved up to 123,000. Sodium 142, potassium 4.3, chloride 106, bicarbonate 25, BUN 16, creatinine 1.3, and glucose 135, high reading was 184 at bedtime. CRP is 6.2, down from 11.1, calcium 8.2. Blood cultures did have positive for gram-positive cocci on the stain, 1/2 bottles. No growth on the plates on 08/10/2017. They were sent out for further ID and sensitivities. A chest CT was actually done on 08/08/2017 and did show the patient to have hazy opacities with findings suggestive of bibasilar atelectasis versus infiltrate. ASSESSMENT AND PLAN: 1. Influenza B. 2. Bilateral infiltrates, possibly community-acquired pneumonia in the setting of influenza, could all be viral. 3. Systemic inflammatory response syndrome. 4. Gram-positive blood culture, but clinically not bacteremic. However, he has been covered with IV Rocephin now day #3 with dosing this evening. He is also on Zithromax day #2. 5. Urinary retention with Humphreys in place. He does have a history of benign prostatic hypertrophy. We will remove the Humphreys today for a voiding trial. We will do bladder scans. We will increase his Flomax up to twice daily. 6. Essential hypertension. Blood pressure is mildly elevated. I will restart his Toprol. 7. Chronic kidney disease. Creatinine stable at 1.3. We will adjust Tamiflu if needed. He did have acute renal failure on admission. 8. Acute renal failure due to illness. 9. History of coronary artery disease, stable without angina. 10.Diabetes, on metformin at home, currently on hold, doing well. We will continue q.i.d. checks. 11.Hypothyroidism. Continue home treatments. 12.Schizoaffective disorder. Continue home treatments. The plan at this point, we will continue his IV Rocephin today and oral Zithromax. We will remove his Humphreys. Do bladder scans. Continue having him up walking in the halls. We will do incentive spirometry. I anticipate that he will be stable for discharge later today or tomorrow depending on how his voiding trial goes. We will decide on antibiotics on discharge based on how he is doing as his final cultures likely would not be back until Sunday. He is on Lovenox for deep venous thrombosis prophylaxis. He is a code level 1. MKA: 08/11/2017 10:20:51 MODL: 08/11/2017 11:11:32 /[id number]
[2017-08-11] MEDS: Metoprolol Succinate 25 MG Tab.ER PO SCH (11:29)
[2017-08-11] MEDS: cefTRIAXone 2 GM Vial IVPUSH SCH (19:38)
[2017-08-11] MEDS: Sodium Chloride 0.9% 10 ML Syringe IV PRN (19:38)
[2017-08-11] MEDS: TRIFLUOPERAZINE PO SCH (19:39)
[2017-08-11] MEDS: Lithium Carbonate 300 MG Tab.ER PO SCH (19:39)
[2017-08-11] MEDS: atorvaSTATin 10 MG Tab PO SCH (19:40)
[2017-08-11] MEDS ORDERED: Tamsulosin 0.4 MG Cap.ER PO SCH (20:00)
[2017-08-12] MEDS: TRIFLUOPERAZINE 2 MG PO SCH (07:47)
[2017-08-12] MEDS: Metoprolol Succinate 25 MG Tab.ER PO SCH (07:47)
[2017-08-12] MEDS: Aspirin 325 MG Tab.EC PO SCH (07:48)
[2017-08-12] MEDS: Allopurinol 300 MG Tab PO SCH (07:48)
[2017-08-12] MEDS: Azithromycin 250 MG Tab PO SCH (07:48)
[2017-08-12] MEDS: buPROPion 150 MG Tab.ER PO SCH (07:48)
[2017-08-12] MEDS: Oseltamivir 30 MG Cap PO SCH (07:48)
[2017-08-12] MEDS: Enoxaparin 40 MG/0.4 ML Syringe SUBCUT SCH (07:52)
[2017-08-12 10:15] VITALS: BP 120/73
--- NOTE | 2017-08-12 12:10 | DISCH ---
PRIMARY DISCHARGE DIAGNOSIS: Influenza B. SECONDARY DISCHARGE DIAGNOSES: 1. Bilateral infiltrates, community-acquired, probably viral pneumonia in the setting of influenza. 2. Systemic inflammatory response syndrome due to influenza. 3. Gram-positive blood culture, 1/2 bottles on the Gram stain, but not growing on the culture plate, possibly a contaminant, clinically a contaminant. He has been covered with IV Rocephin and oral Zithromax. Final report would not be ready for 48 hours. 4. 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 He did well after removing the Humphreys. 5. Essential hypertension, improved blood pressure control with restarting his Toprol. 6. Diabetes with some mild hyperglycemia due to being off metformin. It will be restarted on discharge. 7. Acute renal failure due to acute illness. Creatinine was stable at 1.3 on discharge. 8. Schizoaffective disorder, long-standing. 9. History of coronary artery disease. 10.Chronic kidney disease. REASON FOR ADMISSION: On the date of admission, this 77-year-old male had a fall at home with syncope. He had weakness. He had been coughing for some time before that. He came into the ER, he was found to have influenza B, he was found to have bilateral infiltrates by CT. He was treated with Tamiflu since the . He was also on IV Rocephin since 08/09 and Zithromax on 08/10. Otherwise, he does have a history of smoking, but he did not require any nebulizers. He is not on any inhalers at home. He did not require any prednisone. He overall did well. He was weaned off oxygen. Humphreys was removed yesterday. He is voiding okay. Flomax was increased to twice daily. Otherwise, no medication changes were made. DISCHARGE PLANS AND INSTRUCTIONS: He is going home with his . He will be on Home Health. He will be on Tamiflu for 3 more doses 30 mg b.i.d. due to renal function. He will also be ON increased Flomax to 0.4 b.i.d. He will see Dr. Sow in the clinic in 1 week. DISCHARGE PHYSICAL EXAMINATION: Vital Signs: Temperature 97.9, pulse 63, blood pressure 120/73, respiratory rate 20, O2 94% on room air. General: He is in no acute distress. Heart: Regular rate and rhythm. S1 and S2 without murmur. Lungs: Lung sounds are clear in the upper lobes with a faint wheezing noted in lower lobes with expiration. Otherwise, no crackles appreciated. Abdomen: Nondistended, nontender. Extremities: Warm and dry. No edema. Mental Status: He is alert. He is oriented x2. Initially, he thought he was at somebody else's house when he just awoke abruptly, but then he remembered he was at the hospital. He knew it was Sunday and which holiday was coming up. Greater than 30 minutes spent on the discharge process. It should also be noted he was on Lovenox during his stay for deep venous thrombosis prophylaxis. All his lab work was monitored. His white count was normal yesterday at 5.3, platelets were 123, but had come up slightly. His highest blood sugar was 225. Creatinine was 1.3 yesterday. Addendum for Home Health: The patient requires nursing for teaching and monitoring of urinary retention and medication changes due to an acute illness for pneumonia related to influenza as well as underlying schizoaffective disorder and taking of antipsychotics. He still has weakness related to his illness, but was doing better, up walking the halls and not felt to need PT. However, he is unable to leave his home at this point due to recovering from his influenza with bilateral pneumonia. He needs the assist of another person to leave his home. I will periodically review this plan of care. He would benefit from a home safety eval and cognitive eval. CRISTINOA: 08/12/2017 10:36:04 MODL: 08/12/2017 12:01:50 /[id number] CARLOS
[2017-08-12] MEDS ORDERED: Oseltamivir 30 MG Cap ONE (13:00)
== END 2017-08-12 14:00 | disposition home health service (06) | DRG 194 ==
LOC: VM.ED 22:39 → VM.MS 08-09 00:50 → OBSVTOIN 08-09 13:19 → VM.MS 08-10 10:23
PROVIDERS: ADMIT Family Medicine; ATTEND Family Medicine
DX: J18.9 Pneumonia, unspecified organism (principal); N17.9 Acute kidney failure, unspecified; R65.10 Systemic inflammatory response syndrome (SIRS) of non-infectious origin without acute organ dysfunction; R78.81 Bacteremia; J11.00 Influenza due to unidentified influenza virus with unspecified type of pneumonia; E86.0 Dehydration; R74.8 Abnormal levels of other serum enzymes; R55 Syncope and collapse; R51 Headache; M54.2 Cervicalgia; W18.30XA Fall on same level, unspecified, initial encounter; Y92.003 Bedroom of unspecified non-institutional (private) residence as the place of occurrence of the external cause; I25.10 Atherosclerotic heart disease of native coronary artery without angina pectoris; I12.9 Hypertensive chronic kidney disease with stage 1 through stage 4 chronic kidney disease, or unspecified chronic kidney disease; N18.3 Chronic kidney disease, stage 3 (moderate); N40.1 Benign prostatic hyperplasia with lower urinary tract symptoms; R33.9 Retention of urine, unspecified; E03.9 Hypothyroidism, unspecified; E11.42 Type 2 diabetes mellitus with diabetic polyneuropathy; F25.0 Schizoaffective disorder, bipolar type; E78.5 Hyperlipidemia, unspecified; E79.0 Hyperuricemia without signs of inflammatory arthritis and tophaceous disease; E11.65 Type 2 diabetes mellitus with hyperglycemia; G89.29 Other chronic pain; Z87.891 Personal history of nicotine dependence; Z79.84 Long term (current) use of oral hypoglycemic drugs; Z79.82 Long term (current) use of aspirin; Z79.899 Other long term (current) drug therapy
CPT/HCPCS: 36415; 36600; 51798; 70450; 71250; 72125; 80048; 80053; 81001; 82803; 82962; 83605; 83880; 84153; 84443; 84484; 85025; 86140; 87040; 87077; 87086; 87804; 93005; 94760; 96374; 99285; A9270-GY; J0456; J0696; J1650; J7050; J7120

== ENCOUNTER 2022-07-23 08:44 | Emergency (ER) | payer OTHER, MEDICARE ==
[2022-07-23 09:06] VITALS: BP 127/76; PULSE 106
[2022-07-23 10:18] LABS: CHLORIDE,CL 108 mmol/L (98-107); SODIUM,NA 141 mmol/L (136-145)
[2022-07-23 10:19] LABS: ESTIMATED GFR 47 mL/min (>=60)
[2022-07-23] MEDS ORDERED: Take Home: Sulfamethoxazole/Trimethoprim 800-160 MG Tab, 6 Tab Pack PO ONE (11:29)
== END 2022-07-23 11:40 | disposition home or self-care (01) ==
LOC: VM.ED 08:44
DX: N39.0 Urinary tract infection, site not specified (principal); R33.9 Retention of urine, unspecified; R42 Dizziness and giddiness; R46.0 Very low level of personal hygiene; I12.9 Hypertensive chronic kidney disease with stage 1 through stage 4 chronic kidney disease, or unspecified chronic kidney disease; N18.30 Chronic kidney disease, stage 3 unspecified; E11.22 Type 2 diabetes mellitus with diabetic chronic kidney disease; E11.40 Type 2 diabetes mellitus with diabetic neuropathy, unspecified; I25.10 Atherosclerotic heart disease of native coronary artery without angina pectoris; E78.00 Pure hypercholesterolemia, unspecified; F41.9 Anxiety disorder, unspecified; F32.A Depression, unspecified; E03.9 Hypothyroidism, unspecified; Z79.899 Other long term (current) drug therapy; Z79.84 Long term (current) use of oral hypoglycemic drugs
CPT/HCPCS: 36415; 71046; 80053; 81001; 82550; 83615; 84484; 85025; 86140; 87086; 87088; 87186; 93010; 99284; A9270-GY